=== PATIENT | male | born 1960 | race Caucasian/White ===

== ENCOUNTER 2019-08-19 09:54 | Day surgery (SDC) | payer OTHER ==
[~2019-08-19 09:54] MED LIST: Lactated Ringers 1,000 ML IV SCH
[2019-08-19] MEDS ORDERED: Citric Acid/Sodium Citrate Solution 30 ML Cup PO ONE (10:45)
[2019-08-19] MEDS ORDERED: Propofol 200 MG/20 ML SDV ONE (10:49)
[2019-08-19] MEDS ORDERED: fentaNYL 100 MCG/2 ML SDV ONE (10:49)
--- NOTE | 2019-08-20 11:17 | OR ---
PREOPERATIVE DIAGNOSIS: Gastroesophageal reflux disease. POSTOPERATIVE DIAGNOSES: 1. Gastroesophageal reflux disease. 2. Small hiatal hernia. 3. Antritis. PROCEDURE PERFORMED: Esophagogastroduodenoscopy with biopsies. ANESTHESIA: MAC anesthesia. COMPLICATIONS: None. BLOOD LOSS: Minimal. FINDINGS: 1. The duodenum was examined up to D3 and was unremarkable. 2. There was antral inflammation without evidence of ulcers, biopsies sent for H pylori. 3. Small hiatal hernia estimated 1 or 2 cm. 4. Z-line at 39 cm. 5. Thin tongue of salmon-colored tissue extending proximally from the Z-line about 1.1 to 1.5 cm, biopsy obtained to rule out Wong esophagus. 6. The remainder of the esophagus was unremarkable and there was no erosive esophagitis present. INDICATION FOR PROCEDURE: Mr. Herrera is a 59-year-old male who has had reflux for 20 years. It bothers him 2 to 4 times a week even if he has done some diet modification. He is fairly frustrated of this and he does have a small known sliding hiatal hernia seen on a previous CT scan. I saw him in clinic and he is interested in anti-reflux surgery. We do need to establish the diagnosis of GERD in an objective manner and so he is here for an upper endoscopy. DETAILS OF PROCEDURE: After informed consent was obtained, the patient was brought to procedure room. MAC anesthesia was induced by Anesthesia colleagues. A bite block was then placed. The endoscope was introduced into the mouth down through the upper esophageal sphincter down the esophagus and into the stomach. The pylorus was intubated. The duodenum was examined up to the 3rd portion and was unremarkable. There was some antritis with ulceration. Biopsies were sent for H pylori. On retroflexed view, he had a Hill grade 2 hiatus. The hiatal hernia was not apparent on the retroflexed view. The scope was then withdrawn and there was a small 1 to 2 cm hiatal hernia. The endoscope was then withdrawn and the esophagus examined on the way out. No pathology was identified except for as mentioned above in the findings section. The patient was awoken from MAC anesthesia by Anesthesia colleagues. He tolerated the procedure well. PATHOLOGY: A) Stomach, antrum, biopsy Reactive gastropathy. Negative for H. pylori B) Stomach, body, biopsy No specific pathologic abnormality C) Esophagus, distal, biopsy Squamocolumnar junction with inactive chronic carditis Negative for intestinal metaplasia or dysplasia No objective endoscopic evidence of GERD. Will need Prajapati esophageal pH study in [place]. Discussed this with the patient. RKM: 08/19/2019 11:34:47 MODL: 08/19/2019 15:55:40 /[id number] MTDD
--- NOTE | 2019-08-27 11:18 | LETTER ---
08/26/2019 RE: GAMALIEL HERRERA : 1960 Gamaliel Herrera [address] [place] [address] Dear Mr. Herrera: I am writing to you to inform you of your pathology results from your recent upper endoscopy. As we recently discussed on the phone, you had a little bit of inflammation, but nothing too significant. In regard to your diagnosis of GERD, we did not see objective evidence of reflux into your esophagus with the endoscope. This is not uncommon. However, it means that you will need another test that objectively measures the presence of acid in your esophagus. This is a more specialized test which we do not do in [facility], and so you will have to go to [facility] for this. I will place a referral for them to do this and someone will call you to schedule this and inform you of the details. Please call if you have any additional questions or concerns about this. Warmest regards,
== END 2019-08-19 12:55 | disposition home or self-care (01) ==
LOC: VM.SDS 09:54
PROVIDERS: ATTEND Student in an Organized Health Care Education/Training Program
DX: K29.60 Other gastritis without bleeding (principal); K21.9 Gastro-esophageal reflux disease without esophagitis; I51.89 Other ill-defined heart diseases; K44.9 Diaphragmatic hernia without obstruction or gangrene; Z11.59 Encounter for screening for other viral diseases; I10 Essential (primary) hypertension; J45.30 Mild persistent asthma, uncomplicated; Z98.890 Other specified postprocedural states; Z79.899 Other long term (current) drug therapy; Z88.0 Allergy status to penicillin; Z88.8 Allergy status to other drugs, medicaments and biological substances
CPT/HCPCS: 43239; 87635; A9270; J2704; J3010; J7120; 00731; U0002

== ENCOUNTER 2019-11-10 17:37 | Emergency (ER) | payer OTHER ==
[2019-11-10] MEDS ORDERED: Acetaminophen 500 MG Tab PO ONE (18:16)
[2019-11-10] MEDS ORDERED: Take Home: Oseltamivir 75 MG Cap, 2 Cap Pack PO ONE (18:45)
--- NOTE | 2019-11-10 19:01 | EDM.PDOC ---
ED HPI GENERAL MEDICAL PROBLEM - General Chief Complaint: Fever Stated Complaint: Fever / Body Aches Time Seen by Provider: 11/10/19 18:00 Source of Information: Reports: Patient History Limitations: Reports: No Limitations - History of Present Illness INITIAL COMMENTS - FREE TEXT/NARRATIVE: Pt. presents to ER with complaints of fever, chills, cough, sore throat, and fatigue. Pt. states that the symptoms started today. Denies any ill contacts. Denies any recent travel. Pt. states that the symptoms were very rapid in onset. Complains of significant congestion. No recent rashes. Denies any abdominal discomfort. No dysuria. Denies any neck pain. Onset: Today Location: Reports: Generalized - Related Data Allergies Allergy/AdvReac Type Severity Reaction Status Date / Time amoxicillin Allergy Itching Verified 11/10/19 18:12 ketorolac [From Toradol] AdvReac Nausea and Verified 11/10/19 18:12 Vomiting meperidine HCl [From Demerol] AdvReac Nausea and Verified 11/10/19 18:12 Vomiting Home Meds: Home Meds Albuterol Sulfate [Albuterol Sulfate Hfa] 2 puff INH Q6HR PRN 07/30/19 [History] Aspirin [Aspirin EC] 81 mg PO DAILY 07/30/19 [History] Benralizumab [Fasenra Pen] 30 mg SQ ASDIRECTED 07/30/19 [History] Budesonide [Pulmicort] 1 applic INH ASDIRECTED 07/30/19 [History] EPINEPHrine [Epinephrine] 1 injection IM ASDIRECTED PRN 07/30/19 [History] FLUoxetine HCl [Fluoxetine HCl] 20 mg PO DAILY 07/30/19 [History] Fluticasone Propionate [Flonase] 1 mcg NASBOTH BID 07/30/19 [History] Fluticasone/Vilanterol [Breo Ellipta 200-25 MCG Inhalation Kit] 1 puff INH DAILY 07/30/19 [History] LORazepam [Lorazepam] 0.5 mg PO BEDTIME PRN 07/30/19 [History] Lisinopril/Hydrochlorothiazide [Lisinopril-Hctz 20-12.5 mg Tab] 1 tab PO DAILY 07/30/19 [History] Metoclopramide [Reglan] 5 mg PO BEDTIME 07/30/19 [History] Montelukast [Singulair] 10 mg PO BEDTIME 07/30/19 [History] Nystatin [Nystatin Oral Syringe] 5 ml PO QID 07/30/19 [History] Pantoprazole [ProTONIX] 40 mg PO DAILY 07/30/19 [History] buPROPion HCL [Wellbutrin Xl] 300 mg PO DAILY 07/30/19 [History] Past Medical History - Past Health History Medical/Surgical History: Denies Medical/Surgical History HEENT History: Reports: Allergic Rhinitis, Epistaxis Cardiovascular History: Reports: Hypertension Respiratory History: Reports: Asthma, Sleep Apnea Other Respiratory History: chronic pansinusitis. aspirin-sensitive asthma with nasal polyps Gastrointestinal History: Reports: GERD, Hiatal Hernia Other Gastrointestinal History: abdominal pain Other Musculoskeletal History: backache Psychiatric History: Reports: Depression Other Psychiatric History: poor compliance - Past Surgical History HEENT Surgical History: Reports: Naso-Sinus Surgery Other HEENT Surgeries/Procedures: nasal cautery-christina carty 03/25/2018. excision of nasal polyp. teeth extraction (wisdom) GI Surgical History: Reports: Colonoscopy ED ROS GENERAL - Review of Systems Review Of Systems: See Below Constitutional: Reports: Fever, Chills, Malaise, Weakness, Fatigue HEENT: Reports: No Symptoms Respiratory: Reports: No Symptoms Cardiovascular: Reports: No Symptoms Endocrine: Reports: No Symptoms GI/Abdominal: Reports: No Symptoms : Reports: No Symptoms Musculoskeletal: Reports: No Symptoms Skin: Reports: No Symptoms Neurological: Reports: No Symptoms Psychiatric: Reports: No Symptoms Hematologic/Lymphatic: Reports: No Symptoms Immunologic: Reports: No Symptoms ED EXAM, GENERAL - Physical Exam Exam: See Below Exam Limited By: No Limitations General Appearance: Alert, WD/WN, No Apparent Distress Eye Exam: Bilateral Eye: EOMI, PERRL Nose: Normal Inspection, Normal Mucosa, No Blood Throat/Mouth: Normal Inspection, Normal Lips, Normal Teeth, Normal Gums, Normal Oropharynx, Normal Voice, No Airway Compromise, Inflammation Head: Atraumatic, Normocephalic Neck: Normal Inspection, Supple, Non-Tender, Full Range of Motion Respiratory/Chest: No Respiratory Distress, Lungs Clear, Normal Breath Sounds, No Accessory Muscle Use, Chest Non-Tender Cardiovascular: Normal Peripheral Pulses, Regular Rate, Rhythm, No Edema, No Gallop, No JVD, No Murmur, No Rub GI/Abdominal: Soft, Non-Tender, No Mass (Male) Exam: Deferred Rectal (Males) Exam: Deferred Back Exam: Normal Inspection, Full Range of Motion, NT Extremities: Normal Inspection, Normal Range of Motion, Non-Tender, Normal Capillary Refill, No Pedal Edema Neurological: Alert, Oriented, CN II-XII Intact, Normal Cognition, Normal Gait, Normal Reflexes, No Motor/Sensory Deficits Psychiatric: Normal Affect, Normal Mood Skin Exam: Warm, Dry, Intact, Normal Color, No Rash Lymphatic: No Adenopathy Course - Vital Signs Last Recorded V/S: Last Vital Signs Temp 38.3 C H 11/10/19 18:23 Pulse Resp BP Pulse Ox - Orders/Labs/Meds Orders: Active Orders 24 hr Category Date Time Status CULTURE STREP A CONFIRMATION [] Stat Lab 11/10/19 18:27 Results STREP SCRN A RAPID W CULT CONF [] Stat Lab 11/10/19 18:27 Ordered Labs: Laboratory Tests 11/10/19 Range/Units 17:45 SARS CoV-2 RNA Rapid MELISSA Negative (NEGATIVE) Meds: Medications Discontinued Medications Generic Name Dose Route Start Last Admin Trade Name Carmen PRN Reason Stop Dose Admin Acetaminophen 1,000 mg 11/10/19 18:16 11/10/19 18:23 Tylenol Extra Strength PO 11/10/19 18:17 1,000 mg ONETIME ONE Administration Oseltamivir Phosphate 1 packet 11/10/19 18:45 Take Home: Oseltamivir 75 Mg Cap, 2 Cap Pack PO 11/10/19 18:46 ONETIME ONE - Re-Assessments/Exams Free Text/Narrative Re-Assessment/Exam: Influenza and covid 19 were negative. He refused any other labwork and wanted to leave. Strep was also negative. Departure - Departure Time of Disposition: 19:01 Disposition: Home, Self-Care 01 Clinical Impression: Influenza - Discharge Information Instructions: H1N1 Influenza, Oseltamivir capsules Referrals: Olivia Gonzalez DO [Primary Care Provider] - Forms: ED Department Discharge Additional Instructions: Tamiflu 75mg 1 twice daily for 5 days Tylenol as needed for fever/discomfort Drink plenty of fluids Recheck in clinic in 10-14 days if not gradually improving Sepsis Event Note (ED) - Focused Exam Vital Signs: Vital Signs Temp 11/10/19 18:23 38.3 C H - Problem List Review Problem List Initiated/Reviewed/Updated: Yes - My Orders Last 24 Hours: My Active Orders 11/10/19 18:27 CULTURE STREP A CONFIRMATION [RM] Stat STREP SCRN A RAPID W CULT CONF [RM] Stat - Assessment/Plan Last 24 Hours: My Active Orders 11/10/19 18:27 CULTURE STREP A CONFIRMATION [RM] Stat STREP SCRN A RAPID W CULT CONF [RM] Stat Plan: Pt. has symptoms of influenza like illness. Will start him on tamiflu 75mg twice daily. Drink plenty of fluids. Quarantine until asymptomatic for 48 hours. Tylenol and ibuprofen for fever/discomfort.
== END 2019-11-10 18:59 | disposition home or self-care (01) ==
LOC: VM.ED 17:37
DX: J11.1 Influenza due to unidentified influenza virus with other respiratory manifestations (principal); I10 Essential (primary) hypertension; J45.909 Unspecified asthma, uncomplicated; K21.9 Gastro-esophageal reflux disease without esophagitis; F32.9 Major depressive disorder, single episode, unspecified; Z20.828 Contact with and (suspected) exposure to other viral communicable diseases; Z88.1 Allergy status to other antibiotic agents; Z88.6 Allergy status to analgesic agent; Z88.5 Allergy status to narcotic agent; Z79.82 Long term (current) use of aspirin; Z79.899 Other long term (current) drug therapy
CPT/HCPCS: 87081; 87804; 87804-59; 87880-QW; 99283; A9270-GY; U0002

== ENCOUNTER 2019-12-17 12:13 | Emergency (ER) | payer OTHER ==
--- NOTE | 2019-12-17 13:55 | EDM.PDOC ---
ED HPI GENERAL MEDICAL PROBLEM - General Time Seen by Provider: 12/17/19 13:00 Source of Information: Reports: Patient History Limitations: Reports: No Limitations - History of Present Illness INITIAL COMMENTS - FREE TEXT/NARRATIVE: Pt. presents to ER with complaints of cough, fever, body aches, headache, and shortness of breath for the past several days. He was exposed to someone with covid last Saturday and states that he has been trying to quarantine. He has a history of asthma. No chest pain. Denies any lightheadedness or weakness. No nausea, vomiting, or diarrhea. He states that he has been taking some cold medications. Onset: Today Location: Reports: Head, Generalized Associated Symptoms: Reports: Fever/Chills, Malaise, Shortness of Breath - Related Data Allergies Allergy/AdvReac Type Severity Reaction Status Date / Time amoxicillin Allergy Itching Verified 11/10/19 18:12 ketorolac [From Toradol] AdvReac Nausea and Verified 11/10/19 18:12 Vomiting meperidine HCl [From Demerol] AdvReac Nausea and Verified 11/10/19 18:12 Vomiting Home Meds: Home Meds Albuterol Sulfate [Albuterol Sulfate Hfa] 2 puff INH Q6HR PRN 07/30/19 [History] Aspirin [Aspirin EC] 81 mg PO DAILY 07/30/19 [History] Benralizumab [Fasenra Pen] 30 mg SQ ASDIRECTED 07/30/19 [History] Budesonide [Pulmicort] 1 applic INH ASDIRECTED 07/30/19 [History] EPINEPHrine [Epinephrine] 1 injection IM ASDIRECTED PRN 07/30/19 [History] FLUoxetine HCl [Fluoxetine HCl] 20 mg PO DAILY 07/30/19 [History] Fluticasone Propionate [Flonase] 1 mcg NASBOTH BID 07/30/19 [History] Fluticasone/Vilanterol [Breo Ellipta 200-25 MCG Inhalation Kit] 1 puff INH DAILY 07/30/19 [History] LORazepam [Lorazepam] 0.5 mg PO BEDTIME PRN 07/30/19 [History] Lisinopril/Hydrochlorothiazide [Lisinopril-Hctz 20-12.5 mg Tab] 1 tab PO DAILY 07/30/19 [History] Metoclopramide [Reglan] 5 mg PO BEDTIME 07/30/19 [History] Montelukast [Singulair] 10 mg PO BEDTIME 07/30/19 [History] Nystatin [Nystatin Oral Syringe] 5 ml PO QID 07/30/19 [History] Pantoprazole [ProTONIX] 40 mg PO DAILY 07/30/19 [History] buPROPion HCL [Wellbutrin Xl] 300 mg PO DAILY 07/30/19 [History] Past Medical History - Past Health History Medical/Surgical History: Denies Medical/Surgical History HEENT History: Reports: Allergic Rhinitis, Epistaxis Cardiovascular History: Reports: Hypertension Respiratory History: Reports: Asthma, Sleep Apnea Other Respiratory History: chronic pansinusitis. aspirin-sensitive asthma with nasal polyps Gastrointestinal History: Reports: GERD, Hiatal Hernia Other Gastrointestinal History: abdominal pain Other Musculoskeletal History: backache Psychiatric History: Reports: Depression Other Psychiatric History: poor compliance - Past Surgical History HEENT Surgical History: Reports: Naso-Sinus Surgery Other HEENT Surgeries/Procedures: nasal cautery-christina carty 03/25/2018. excision of nasal polyp. teeth extraction (wisdom) GI Surgical History: Reports: Colonoscopy ED ROS GENERAL - Review of Systems Review Of Systems: See Below Constitutional: Reports: Fever, Chills HEENT: Reports: Sinus Problem, Throat Pain Respiratory: Reports: Shortness of Breath Cardiovascular: Reports: No Symptoms Endocrine: Reports: No Symptoms GI/Abdominal: Reports: No Symptoms : Reports: No Symptoms Musculoskeletal: Reports: No Symptoms Skin: Reports: No Symptoms Neurological: Reports: No Symptoms Psychiatric: Reports: No Symptoms Hematologic/Lymphatic: Reports: No Symptoms Immunologic: Reports: No Symptoms ED EXAM, GENERAL - Physical Exam Exam: See Below Exam Limited By: No Limitations General Appearance: Alert, WD/WN, Anxious Eye Exam: Bilateral Eye: EOMI, PERRL Throat/Mouth: Normal Inspection, Normal Lips, Normal Teeth, Normal Gums, Normal Oropharynx, Normal Voice, No Airway Compromise Head: Atraumatic, Normocephalic Neck: Normal Inspection, Supple, Non-Tender, Full Range of Motion Respiratory/Chest: No Respiratory Distress, Lungs Clear, Normal Breath Sounds, No Accessory Muscle Use, Chest Non-Tender Cardiovascular: Normal Peripheral Pulses, Regular Rate, Rhythm, No Edema, No Gallop, No JVD, No Murmur, No Rub Peripheral Pulses: 4+: Radial (L) GI/Abdominal: Soft, Non-Tender, No Distention, No Mass (Male) Exam: Deferred Rectal (Males) Exam: Deferred Back Exam: Normal Inspection, Full Range of Motion Extremities: Normal Inspection, Normal Range of Motion, Non-Tender, No Pedal Edema, Normal Capillary Refill Neurological: Alert, Oriented, CN II-XII Intact, Normal Cognition, Normal Gait, Normal Reflexes, No Motor/Sensory Deficits Psychiatric: Normal Affect, Normal Mood Skin Exam: Warm, Dry, Intact, Normal Color, No Rash Lymphatic: No Adenopathy Course - Orders/Labs/Meds Labs: Laboratory Tests 12/17/19 Range/Units 12:20 SARS CoV-2 RNA Rapid MELISSA Positive H (NEGATIVE) Departure - Departure Time of Disposition: 13:00 Disposition: Home, Self-Care 01 Clinical Impression: COVID-19 - Discharge Information Instructions: COVID-19 Additional Instructions: Home to rest. Tylenol as needed for fever. Dept. of Health will be in contact with you. - Assessment/Plan Plan: Home to rest. Tylenol as needed for fever. Dept. of Health will be in contact with you regarding quarantine time. Drink plenty of fluids.
== END 2019-12-17 13:05 | disposition home or self-care (01) ==
LOC: VM.ED 12:13
DX: U07.1 COVID-19 (principal); K21.9 Gastro-esophageal reflux disease without esophagitis; F32.9 Major depressive disorder, single episode, unspecified; J45.909 Unspecified asthma, uncomplicated; Z88.1 Allergy status to other antibiotic agents; Z88.6 Allergy status to analgesic agent; Z88.5 Allergy status to narcotic agent; Z79.82 Long term (current) use of aspirin; I10 Essential (primary) hypertension
CPT/HCPCS: 87804; 87804-59; 99283; 99284; U0002

== ENCOUNTER 2020-12-01 10:46 | Day surgery (SDC) | payer OTHER ==
[~2020-12-01 10:46] MED LIST changes: -Lactated Ringers 1,000 ML IV SCH; +Sodium Chloride 0.9% 10 ML Syringe FLUSH PRN
[2020-12-01] MEDS: Lactated Ringers 1,000 ML IV SCH (11:16)
[2020-12-01] MEDS ORDERED: fentaNYL 100 MCG/2 ML SDV ONE (12:09)
[2020-12-01] MEDS ORDERED: Propofol 200 MG/20 ML SDV ONE ×2 (12:09→13:09)
--- NOTE | 2020-12-02 09:21 | OR ---
DATE OF SURGERY: 12/01/2020 REFERRING PROVIDER: Olivia Gonzalez DO PRE-OPERATIVE DIAGNOSES: Screening colonoscopy. The patient's last colonoscopy was 08/2010. There is no known family history of colon cancer. POST-OPERATIVE DIAGNOSES: 1. 2 small polyps removed using cold forceps. a. 3 mm and 4 mm polyps at 40 cm. 2. Moderate left-sided diverticulosis. 3. Normal-appearing terminal ileum. PROCEDURE: Colonoscopy with polypectomy x2 using cold forceps. SURGEON: Jordin Flowers M.D. ANESTHESIA: Monitored anesthesia care. BOWEL PREP: Fair. Did require significant irrigation and suctioning. Gamaliel is a 60-year-old male who was brought to the endoscopy suite after discussing risks and benefits of the procedure. Informed consent was obtained for conscious sedation and colonoscopy with or without biopsy and/or polypectomy. We also discussed possibility of missed lesions. Pre-procedure exam was unremarkable. IV, oxygen, and monitors were placed. The patient was placed in the left lateral decubitus position. Sedation was administered and a digital rectal exam was performed and unremarkable except for moderate enlargement of the prostate. No palpable nodules noted. Colonoscope was passed into the rectum and slowly advanced all the way to the cecum. Cecum was viewed and photographed. Terminal ileum was normal in appearance. The patient did require a significant amount of irrigation and suctioning, and scope did plug during the procedure, which took some time to get corrected. The colonoscope was slowly withdrawn and the mucosa was closed observed in a direct circumferential manner. The ascending colon was unremarkable. The transverse colon was unremarkable. The descending and sigmoid colon revealed moderate diverticulosis. There was also 3 mm and 4 mm polyps at 40 cm, both removed using cold forceps. Retroflexion was performed, rectal mucosa unremarkable. Scope was removed. The patient tolerated the procedure well. The patient was monitored until that baseline status. Discharge instructions were reviewed and the patient was discharged in good condition. COMPLICATIONS: None. TOTAL TIME: 29 minutes. ESTIMATED BLOOD LOSS: Less than 1 mL. RECOMMENDATIONS/FOLLOW-UP: We will await results of path report to determine ideal followup interval. I would like to kindly thank Olivia Gonzalez for this referral. DMB: 12/01/2020 14:43:05 MODL: 12/01/2020 20:52:29 /[id number]
== END 2020-12-01 14:52 | disposition home or self-care (01) ==
LOC: VM.SDS 10:46
PROVIDERS: ATTEND Family Medicine
DX: Z12.11 Encounter for screening for malignant neoplasm of colon (principal); K63.5 Polyp of colon; K57.30 Diverticulosis of large intestine without perforation or abscess without bleeding; I10 Essential (primary) hypertension; G47.30 Sleep apnea, unspecified; K21.9 Gastro-esophageal reflux disease without esophagitis; J45.30 Mild persistent asthma, uncomplicated; Z98.890 Other specified postprocedural states; Z79.899 Other long term (current) drug therapy; Z88.8 Allergy status to other drugs, medicaments and biological substances; Z88.1 Allergy status to other antibiotic agents
CPT/HCPCS: 00812; J2704; J3010; J7120